=== PATIENT | female | born 1965 | race Caucasian/White ===

== ENCOUNTER 2019-01-25 15:45 | Emergency (ER) | payer BC ==
[2019-01-25] MEDS ORDERED: Sodium Chloride 0.9% 10 ML Syringe FLUSH PRN (16:53)
[2019-01-25] MEDS ORDERED: Sodium Chloride 0.9% 1,000 ML IV ONE (16:54)
[2019-01-25] MEDS ORDERED: Prochlorperazine 10 MG/2 ML SDV IVPUSH ONE (16:55)
[2019-01-25] MEDS ORDERED: diphenhydrAMINE 50 MG/ML SDV IVPUSH ONE (16:55)
--- NOTE | 2019-01-25 17:02 | EDM.PDOC ---
ED HPI GENERAL MEDICAL PROBLEM - General Chief Complaint: Headache Stated Complaint: HEADACHE MEMORY LOSS Time Seen by Provider: 01/25/19 16:57 Source of Information: Reports: Patient History Limitations: Reports: No Limitations - History of Present Illness INITIAL COMMENTS - FREE TEXT/NARRATIVE: Patient awoke with left sided headache today at 0500 associated with memory loss and exacerbated by light. Last known well was 2200 yesterday. She is unable to remember what she did all day yesterday, and was unable to remember a password at work today. She has felt dizzy and been sleeping all day today. She denies chest pain, SOB, focal weakness, numbness, and N/V. There have been no changes to her medications. Denies prior h/o chronic headaches. She had similar symptoms @3 years ago, but work up revealed no etiology. Onset: Today Location: Reports: Head Quality: Reports: Ache Severity: Moderate - Related Data Allergies Allergy/AdvReac Type Severity Reaction Status Date / Time seasonal Allergy Other Uncoded 01/25/19 18:19 Past Medical History Respiratory History: Reports: COPD, Pneumonia, Recurrent Other Respiratory History: Former cigarette smoker. Neurological History: Reports: Other (See Below) Other Neuro History: Episodes of headache and memory loss, around 2017 and 2019. Endocrine/Metabolic History: Reports: Other (See Below) Other Endocrine/Metabolic History: Takes thyroid medication. - Past Surgical History Female Surgical History: Reports: Section Social & Family History - Tobacco Use Smoking Status *Q: Former Smoker Tobacco Use Within Last Twelve Months: No - Alcohol Use Alcohol Use History: No - Recreational Drug Use Recreational Drug Use: No ED ROS GENERAL - Review of Systems Review Of Systems: ROS reveals no pertinent complaints other than HPI. - Physical Exam Exam: See Below Exam Limited By: No Limitations General Appearance: Alert, WD/WN, No Apparent Distress Eye Exam: Bilateral Eye: EOMI, PERRL Ears: Normal External Exam Nose: Normal Inspection Throat/Mouth: Normal Inspection, Normal Oropharynx, No Airway Compromise Head Exam: Atraumatic, Normocephalic Neck: Normal Inspection, Supple Respiratory/Chest: No Respiratory Distress, Lungs Clear, Normal Breath Sounds Cardiovascular: Regular Rate, Rhythm, No Murmur GI/Abdominal: No Distention Neuro Exam (Abbreviated): Alert, Oriented, CN II-XII Intact, No Motor/Sensory Deficits Back Exam: Full Range of Motion Extremities: Normal Range of Motion Psychiatric: Normal Affect Skin Exam: Warm, Dry Course - Vital Signs Last Recorded V/S: Last Vital Signs Temp 36.6 C 01/25/19 15:49 Pulse 94 01/25/19 15:49 Resp 16 01/25/19 15:49 BP 99/69 01/25/19 15:49 Pulse Ox 96 01/25/19 15:49 - Orders/Labs/Meds Orders: Active Orders 24 hr Category Date Time Status EKG Documentation Completion [RC] ASDIRECTED Care 01/25/19 16:56 Active Head wo Cont [CT] Stat Exams 01/25/19 16:56 Taken Sodium Chloride 0.9% [Saline Flush] Med 01/25/19 16:53 Active 10 ml FLUSH ASDIRECTED PRN Saline Lock Insert [OM.PC] Routine Oth 01/25/19 16:53 Ordered EKG 12 Lead [EK] Stat Ther 01/25/19 16:55 Ordered Medication Orders Sodium Chloride (Saline Flush) 10 ml FLUSH ASDIRECTED PRN PRN Reason: Keep Vein Open Labs: Laboratory Tests 01/25/19 01/25/19 01/25/19 Range/Units 17:05 17:05 17:05 WBC 6.1 (4.5-12.0) X10-3/uL RBC 4.74 (3.23-5.20) x10(6)uL Hgb 13.8 (11.5-15.5) g/dL Hct 40.8 (30.0-51.3) % MCV 85.9 (80-96) fL MCH 29.1 (27.7-33.6) pg MCHC 33.9 (32.2-35.4) g/dL RDW 11.4 L (11.5-15.5) % Plt Count 235 (125-369) X10(3)uL MPV 7.5 (7.4-10.4) fL Neut % (Auto) 64.5 (46-82) % Lymph % (Auto) 27.4 (13-37) % [place] % (Auto) 7.3 (4-12) % Eos % (Auto) 0 L (1.0-5.0) % Baso % (Auto) 0 (0-2) % Neut # (Auto) 4.0 (1.6-8.3) # Lymph # (Auto) 1.7 (0.6-5.0) # [place] # (Auto) 0.4 (0.0-1.3) # Eos # (Auto) 0.0 (0.0-0.8) # Baso # (Auto) 0.0 (0.0-0.2) # Sodium 137 (135-145) mmol/L Potassium 4.1 (3.5-5.3) mmol/L Chloride 100 (100-110) mmol/L Carbon Dioxide 29 (21-32) mmol/L BUN 6 L (7-18) mg/dL Creatinine 1.0 (0.55-1.02) mg/dL Est Cr Clr Drug Dosing TNP Estimated GFR (MDRD) 57 L (>60) BUN/Creatinine Ratio 6.0 L (9-20) Glucose 110 (80-116) mg/dL Calcium 9.0 (8.6-10.2) mg/dL Total Bilirubin 0.8 (0.1-1.3) mg/dL AST 16 (5-25) IU/L ALT 22 (12-36) U/L Alkaline Phosphatase 46 L (56-112) IU/L Troponin I < 0.017 L (<0.017-0.056) ng/mL Total Protein 6.9 (6.0-8.0) g/dL Albumin 3.6 (3.5-5.2) g/dL Globulin 3.3 g/dL Albumin/Globulin Ratio 1.1 TSH, Ultra Sensitive (0.36-3.74) IU/mL 01/25/19 Range/Units 17:05 WBC (4.5-12.0) X10-3/uL RBC (3.23-5.20) x10(6)uL Hgb (11.5-15.5) g/dL Hct (30.0-51.3) % MCV (80-96) fL MCH (27.7-33.6) pg MCHC (32.2-35.4) g/dL RDW (11.5-15.5) % Plt Count (125-369) X10(3)uL MPV (7.4-10.4) fL Neut % (Auto) (46-82) % Lymph % (Auto) (13-37) % [place]re[place] % (Auto) (4-12) % Eos % (Auto) (1.0-5.0) % Baso % (Auto) (0-2) % Neut # (Auto) (1.6-8.3) # Lymph # (Auto) (0.6-5.0) # M[place]re[place] # (Auto) (0.0-1.3) # Eos # (Auto) (0.0-0.8) # Baso # (Auto) (0.0-0.2) # Sodium (135-145) mmol/L Potassium (3.5-5.3) mmol/L Chloride (100-110) mmol/L Carbon Dioxide (21-32) mmol/L BUN (7-18) mg/dL Creatinine (0.55-1.02) mg/dL Est Cr Clr Drug Dosing Estimated GFR (MDRD) (>60) BUN/Creatinine Ratio (9-20) Glucose (80-116) mg/dL Calcium (8.6-10.2) mg/dL Total Bilirubin (0.1-1.3) mg/dL AST (5-25) IU/L ALT (12-36) U/L Alkaline Phosphatase (56-112) IU/L Troponin I (<0.017-0.056) ng/mL Total Protein (6.0-8.0) g/dL Albumin (3.5-5.2) g/dL Globulin g/dL Albumin/Globulin Ratio TSH, Ultra Sensitive 0.43 (0.36-3.74) IU/mL Meds: Medications Generic Name Dose Route Start Last Admin Trade Name Freq PRN Reason Stop Dose Admin Sodium Chloride 10 ml 01/25/19 16:53 Saline Flush FLUSH ASDIRECTED PRN Keep Vein Open Discontinued Medications Generic Name Dose Route Start Last Admin Trade Name Freq PRN Reason Stop Dose Admin Diphenhydramine HCl 25 mg 01/25/19 16:55 01/25/19 17:37 Benadryl IVPUSH 01/25/19 16:56 25 mg ONETIME ONE Administration Sodium Chloride 1,000 mls @ 999 mls/hr 01/25/19 16:54 01/25/19 17:37 Normal Saline IV 01/25/19 17:54 999 mls/hr .BOLUS ONE Administration Prochlorperazine Edisylate 10 mg 01/25/19 16:55 01/25/19 17:40 Compazine IVPUSH 01/25/19 16:56 10 mg ONETIME ONE Administration - Radiology Interpretation Free Text/Narrative:: Head CT w/o contrast: No acute intracranial abnormality. Chronic bilateral sinus disease. - Re-Assessments/Exams Free Text/Narrative Re-Assessment/Exam: 01/25/19 18:20 Headache resolved after Compazine 10mg IV, Benadryl 25mg IV and 1L NS. Patient ambulates w/o assistance. Migraine most likely etiology of headache with retrograde amnesia. Departure - Departure Time of Disposition: 18:21 Disposition: Home, Self-Care 01 Condition: Good Clinical Impression: Amnesia (retrograde) Headache Qualifiers: Headache type: unspecified Headache chronicity pattern: acute headache Intractability: not intractable Qualified Code(s): R51 - Headache - Discharge Information *PRESCRIPTION DRUG MONITORING PROGRAM REVIEWED*: No *COPY OF PRESCRIPTION DRUG MONITORING REPORT IN PATIENT JADIEL: Not Applicable Instructions: Migraine Headache, [id number] Referrals: Uyen Ibarra [employer] [Primary Care Provider] - 1 Day Forms: ED Department Discharge Additional Instructions: Rest, drink plenty of fluids. Follow up with your primary physician tomorrow. Will need a Neurology referral. Rest, drink plenty of fluids. Return to the ER if symptoms worsen, especially with worsening headache, worsening amnesia, change in mental status, focal weakness or visual disturbance. - My Orders Last 24 Hours: My Active Orders 01/25/19 16:53 Sodium Chloride 0.9% [Saline Flush] 10 ml FLUSH ASDIRECTED PRN Saline Lock Insert [OM.PC] Routine 01/25/19 16:55 EKG 12 Lead [EK] Stat 01/25/19 16:56 EKG Documentation Completion [RC] ASDIRECTED Head wo Cont [CT] Stat - Assessment/Plan Last 24 Hours: My Active Orders 01/25/19 16:53 Sodium Chloride 0.9% [Saline Flush] 10 ml FLUSH ASDIRECTED PRN Saline Lock Insert [OM.PC] Routine 01/25/19 16:55 EKG 12 Lead [EK] Stat 01/25/19 16:56 EKG Documentation Completion [RC] ASDIRECTED Head wo Cont [CT] Stat
== END 2019-01-25 18:45 | disposition home or self-care (01) ==
LOC: FB.ED 15:45
DX: R41.3 Other amnesia (principal); R51 Headache; J44.9 Chronic obstructive pulmonary disease, unspecified; Z87.891 Personal history of nicotine dependence; Z91.09 Other allergy status, other than to drugs and biological substances
CPT/HCPCS: 36415; 70450; 80053; 84443; 84484; 85025; 96361; 96374; 96375; 99284; J0780; J1200; J7030

== ENCOUNTER 2019-09-14 13:26 | Observation (INO) | payer BC ==
[2019-09-14] MEDS ORDERED: Ondansetron 4 MG/2 ML SDV IVPUSH ONE (13:33)
[2019-09-14] MEDS: Sodium Chloride 0.9% 10 ML Syringe FLUSH PRN (13:35)
[2019-09-14] MEDS ORDERED: cloNIDine 0.1 MG Tab PO ONE (13:38)
[2019-09-14] MEDS ORDERED: Levothyroxine 100 MCG Vial IVPUSH ONE (15:17)
[2019-09-14] MEDS ORDERED: Levothyroxine 150 MCG Tab PO STA (15:54)
--- NOTE | 2019-09-14 15:55 | EDM.PDOC ---
ED HPI GENERAL MEDICAL PROBLEM - General Chief Complaint: Syncope Stated Complaint: presyncope Time Seen by Provider: 09/14/19 13:30 Source of Information: Reports: Patient History Limitations: Reports: No Limitations - History of Present Illness INITIAL COMMENTS - FREE TEXT/NARRATIVE: Patient presented to the ED because of near syncopal episode. She said she has been having episodes of floating sensation and almost want to pass out. During this episode she is disoriented and confused, last for 1 minute or less and then she c/o of being very tired and drained of energy. This near syncopal episodes started 1 year ago but didn't mention it to her doctor. She denies any headache, N/V/D. No chest pain, dyspnea or recent cough or cold. frontal head Pain Score (Numeric/FACES): 2 - Related Data Allergies Allergy/AdvReac Type Severity Reaction Status Date / Time seasonal Allergy Other Uncoded 01/25/19 18:20 Home Meds: Home Meds Albuterol Sulfate [Proair Hfa] 2 puff INH Q4H PRN 01/25/19 [History] Budesonide/Formoterol [Symbicort 160-4.5 MCG] 2 puff INH BID 01/25/19 [History] Levothyroxine 150 mcg PO SUMOTUTHFR 01/25/19 [History] Levothyroxine Sodium 137 mcg PO WESA 01/25/19 [History] PARoxetine HCL [Paroxetine HCl] 20 mg PO DAILY 01/25/19 [History] Tiotropium [place] [Spiriva Respimat] 2 puff INH DAILY 01/25/19 [History] Past Medical History Cardiovascular History: Reports: Hypertension Respiratory History: Reports: COPD, Pneumonia, Recurrent Other Respiratory History: Former cigarette smoker. Neurological History: Reports: Other (See Below) Other Neuro History: Episodes of headache and memory loss, around 2017 and 2019. Endocrine/Metabolic History: Reports: Other (See Below) Other Endocrine/Metabolic History: Takes thyroid medication. - Past Surgical History Female Surgical History: Reports: Section Social & Family History - Tobacco Use Smoking Status *Q: Former Smoker Used Tobacco, but Quit: Yes Month/Year Tobacco Last Used: 2014 ED ROS GENERAL - Review of Systems Review Of Systems: See Below Constitutional: Reports: No Symptoms HEENT: Reports: No Symptoms Respiratory: Reports: No Symptoms Cardiovascular: Reports: No Symptoms Endocrine: Reports: Fatigue GI/Abdominal: Reports: No Symptoms : Reports: No Symptoms Musculoskeletal: Reports: No Symptoms Skin: Reports: No Symptoms Neurological: Reports: No Symptoms Psychiatric: Reports: No Symptoms Hematologic/Lymphatic: Reports: No Symptoms ED EXAM, GENERAL - Physical Exam Exam: See Below Exam Limited By: No Limitations General Appearance: Alert Ears: Normal External Exam Nose: Normal Inspection, Normal Mucosa Throat/Mouth: Normal Inspection, Normal Lips, Normal Teeth Head: Atraumatic, Normocephalic Neck: Normal Inspection, Supple, Non-Tender, Full Range of Motion Respiratory/Chest: No Respiratory Distress, Lungs Clear, Normal Breath Sounds Cardiovascular: Normal Peripheral Pulses, Regular Rate, Rhythm, No Edema, No JVD , No Murmur, No Rub GI/Abdominal: Normal Bowel Sounds, Soft, Non-Tender Back Exam: Normal Inspection, Full Range of Motion Extremities: Normal Inspection, Normal Range of Motion Neurological: Alert, Oriented, CN II-XII Intact, Normal Cognition Course - Vital Signs Text/Narrative:: Labs/EKG/CXR/Head CT result was discussed with patient, her Paxton and verbalized full understanding. TSH-33 Free T4-pending Levothyroxine 150 mcg po x1 Last Recorded V/S: Last Vital Signs Temp 37.1 C 09/14/19 13:26 Pulse 96 09/14/19 13:26 Resp 20 09/14/19 13:26 BP 172/89 H 09/14/19 13:44 Pulse Ox 97 09/14/19 13:26 - Orders/Labs/Meds Orders: Active Orders 24 hr Category Date Time Status EKG Documentation Completion [RC] ASDIRECTED Care 09/14/19 13:28 Active Chest 1V Frontal [CR] Stat Exams 09/14/19 14:09 Taken Head wo Cont [CT] Stat Exams 09/14/19 13:27 Taken THYROXINE (T4) FREE, DIRECT, S Stat Lab 09/14/19 14:20 Received LORazepam [Ativan] Med 09/14/19 16:17 Stat 1 mg IVPUSH NOW STA Sodium Chloride 0.9% [Saline Flush] Med 09/14/19 13:27 Active 10 ml FLUSH ASDIRECTED PRN Saline Lock Insert [OM.PC] Routine Oth 09/14/19 13:27 Ordered EKG 12 Lead [EK] Routine Ther 09/14/19 13:27 Ordered Medication Orders Sodium Chloride (Saline Flush) 10 ml FLUSH ASDIRECTED PRN PRN Reason: Keep Vein Open Last Admin: 09/14/19 13:35 Dose: 10 ml Labs: Laboratory Tests 09/14/19 09/14/19 09/14/19 Range/Units 14:20 14:20 14:20 WBC 6.1 (4.5-12.0) X10-3/uL RBC 4.41 (3.23-5.20) x10(6)uL Hgb 13.7 (11.5-15.5) g/dL Hct 41.5 (30.0-51.3) % MCV 94.2 (80-96) fL MCH 31.0 (27.7-33.6) pg MCHC 32.9 (32.2-35.4) g/dL RDW 13.2 (11.5-15.5) % Plt Count 220 (125-369) X10(3)uL MPV 7.1 L (7.4-10.4) fL Neut % (Auto) 83.3 H (46-82) % Lymph % (Auto) 12.2 L (13-37) % [place] % (Auto) 3.8 L (4-12) % Eos % (Auto) 0 L (1.0-5.0) % Baso % (Auto) 1 (0-2) % Neut # (Auto) 5.2 (1.6-8.3) # Lymph # (Auto) 0.7 (0.6-5.0) # [place] # (Auto) 0.2 (0.0-1.3) # Eos # (Auto) 0.0 (0.0-0.8) # Baso # (Auto) 0.0 (0.0-0.2) # PT 18.2 H (9.0-11.1) sec INR 1.75 H (1.00-1.24) APTT 25.9 (24.4-33.2) SECONDS Sodium 134 L (135-145) mmol/L Potassium 3.9 (3.5-5.3) mmol/L Chloride 98 L (100-110) mmol/L Carbon Dioxide 28 (21-32) mmol/L BUN 10 (7-18) mg/dL Creatinine 1.0 (0.55-1.02) mg/dL Est Cr Clr Drug Dosing TNP Estimated GFR (MDRD) 57 L (>60) BUN/Creatinine Ratio 10.0 (9-20) Glucose 129 H (80-116) mg/dL Calcium 8.8 (8.6-10.2) mg/dL Total Bilirubin 1.2 (0.1-1.3) mg/dL AST 32 H D (5-25) IU/L ALT 32 D (12-36) U/L Alkaline Phosphatase 64 (56-112) IU/L Troponin I (4.0-60.3) pg/mL Total Protein 8.3 H (6.0-8.0) g/dL Albumin 4.5 (3.5-5.2) g/dL Globulin 3.8 g/dL Albumin/Globulin Ratio 1.2 TSH, Ultra Sensitive (0.36-3.74) IU/mL 09/14/19 09/14/19 Range/Units 14:20 14:20 WBC (4.5-12.0) X10-3/uL RBC (3.23-5.20) x10(6)uL Hgb (11.5-15.5) g/dL Hct (30.0-51.3) % MCV (80-96) fL MCH (27.7-33.6) pg MCHC (32.2-35.4) g/dL RDW (11.5-15.5) % Plt Count (125-369) X10(3)uL MPV (7.4-10.4) fL Neut % (Auto) (46-82) % Lymph % (Auto) (13-37) % [place] % (Auto) (4-12) % Eos % (Auto) (1.0-5.0) % Baso % (Auto) (0-2) % Neut # (Auto) (1.6-8.3) # Lymph # (Auto) (0.6-5.0) # [place] # (Auto) (0.0-1.3) # Eos # (Auto) (0.0-0.8) # Baso # (Auto) (0.0-0.2) # PT (9.0-11.1) sec INR (1.00-1.24) APTT (24.4-33.2) SECONDS Sodium (135-145) mmol/L Potassium (3.5-5.3) mmol/L Chloride (100-110) mmol/L Carbon Dioxide (21-32) mmol/L BUN (7-18) mg/dL Creatinine (0.55-1.02) mg/dL Est Cr Clr Drug Dosing Estimated GFR (MDRD) (>60) BUN/Creatinine Ratio (9-20) Glucose (80-116) mg/dL Calcium (8.6-10.2) mg/dL Total Bilirubin (0.1-1.3) mg/dL AST (5-25) IU/L ALT (12-36) U/L Alkaline Phosphatase (56-112) IU/L Troponin I 6.0 (4.0-60.3) pg/mL Total Protein (6.0-8.0) g/dL Albumin (3.5-5.2) g/dL Globulin g/dL Albumin/Globulin Ratio TSH, Ultra Sensitive 38.62 H* (0.36-3.74) IU/mL Meds: Medications Generic Name Dose Route Start Last Admin Trade Name Freq PRN Reason Stop Dose Admin Sodium Chloride 10 ml 09/14/19 13:27 09/14/19 13:35 Saline Flush FLUSH 10 ml ASDIRECTED PRN Administration Keep Vein Open Discontinued Medications Generic Name Dose Route Start Last Admin Trade Name Freq PRN Reason Stop Dose Admin Clonidine HCl 0.1 mg 09/14/19 13:38 09/14/19 13:44 Catapres PO 09/14/19 13:39 0.1 mg ONETIME ONE Administration Levothyroxine Sodium 150 mcg 09/14/19 15:17 09/14/19 15:53 Synthroid IVPUSH 09/14/19 15:18 Not Given ONETIME ONE Levothyroxine Sodium 150 mcg 09/14/19 15:54 09/14/19 16:05 Levothyroxine PO 09/14/19 15:55 150 mcg NOW STA Administration Ondansetron HCl 4 mg 09/14/19 13:33 09/14/19 13:44 Zofran IVPUSH 09/14/19 13:34 4 mg ONETIME ONE Administration Departure - Departure Time of Disposition: 16:20 Disposition: Refer to Observation Condition: Good Clinical Impression: Near syncope, Hypothyroidism - Discharge Information Referrals: PCP,None [Primary Care Provider] - Forms: ED Department Discharge Sepsis Event Note - Evaluation Sepsis Screening Result: No Definite Risk - Focused Exam Vital Signs: Vital Signs Temp Pulse Resp BP BP Pulse Ox 09/14/19 13:44 172/89 H 09/14/19 13:26 37.1 C 96 20 160/84 H 97 Date Exam was Performed: 09/14/19 Time Exam was Performed: 16:18 - My Orders Last 24 Hours: My Active Orders 09/14/19 13:27 Head wo Cont [CT] Stat Sodium Chloride 0.9% [Saline Flush] 10 ml FLUSH ASDIRECTED PRN Saline Lock Insert [OM.PC] Routine EKG 12 Lead [EK] Routine 09/14/19 13:28 EKG Documentation Completion [RC] ASDIRECTED 09/14/19 14:09 Chest 1V Frontal [CR] Stat 09/14/19 14:20 THYROXINE (T4) FREE, DIRECT, S Stat 09/14/19 16:17 LORazepam [Ativan] 1 mg IVPUSH NOW STA - Assessment/Plan Last 24 Hours: My Active Orders 09/14/19 13:27 Head wo Cont [CT] Stat Sodium Chloride 0.9% [Saline Flush] 10 ml FLUSH ASDIRECTED PRN Saline Lock Insert [OM.PC] Routine EKG 12 Lead [EK] Routine 09/14/19 13:28 EKG Documentation Completion [RC] ASDIRECTED 09/14/19 14:09 Chest 1V Frontal [CR] Stat 09/14/19 14:20 THYROXINE (T4) FREE, DIRECT, S Stat 09/14/19 16:17 LORazepam [Ativan] 1 mg IVPUSH NOW STA
[2019-09-14] MEDS ORDERED: LORazepam 2 MG/ML SDV IVPUSH STA (16:17)
[2019-09-14] MEDS ORDERED: Ondansetron 4 MG/2 ML SDV IVPUSH PRN (16:25)
[2019-09-14] MEDS ORDERED: LORazepam 2 MG/ML SDV IVPUSH PRN (16:40)
--- NOTE | 2019-09-14 17:18 | CR ---
INDICATION: Altered level of consciousness. CHEST, ONE VIEW: An AP upright portable view of the chest 09/14/19 was compared with 03/03/09. Poor inspiration is noted emphasizing the elevated left hemidiaphragm. Linear densities at the left hemidiaphragm suggest subsegmental atelectasis. Overlying devices are noted including EKG leads. Heart size difficult to evaluate with the elevated diaphragm but appears to be within normal limits. No definite mediastinal abnormality was seen. A definite active infiltrate or effusion was not identified. IMPRESSION: Probable linear atelectatic changes at the left lung base. There is no other suggestion of an acute process. MTDD
--- NOTE | 2019-09-14 17:24 | CT ---
INDICATION: Altered level of consciousness times one hour. CT HEAD WITHOUT CONTRAST: Spiral 2.5 mm axial sections were obtained through the brain without contrast with sagittal and coronal reconstructions 09/14/19 and compared to 01/25/19. Total exam DLP was 1348.07 mGy-cm. There is again noted thickening of the lining of the base of the right maxillary antrum with clearing of thickening of the lining seen on the previous study at the left maxillary antrum. The sphenoidal air cells were unremarkable. There is some thickening of the lining of the frontal air cells at the base of the frontal air cells. There is thickening of the linings of a few of the more superiorly located ethmoidal air cells. Findings may represent a process such as allergic sinusitis but should be correlated clinically. No definite cranial abnormality was seen. No shift of midline structures, ventricular abnormalities or abnormal areas of density were identified - no bleeding site or hematoma was seen. The orbits appear to be intact. IMPRESSION: 1. No acute intracranial abnormalities. 2. Mild chronic findings in paranasal sinuses. Report was called to Dr. Doe at 1408 hours. [facility]
[2019-09-14] MEDS ORDERED: levETIRAcetam 1,500 MG in Sodium Chloride 0.9% 100 ML IV STA (18:00)
[2019-09-14] MEDS ORDERED: levETIRAcetam 1,000 MG in Sodium Chloride 0.9% 100 ML IV SCH (18:00)
[2019-09-15] MEDS: Sodium Chloride 0.9% 10 ML Syringe FLUSH PRN (05:49)
[2019-09-15] MEDS ORDERED: Levothyroxine 150 MCG Tab PO SCH (06:00)
[2019-09-15] MEDS ORDERED: levETIRAcetam 1,000 MG in Sodium Chloride 0.9% 100 ML IV SCH (06:00)
--- NOTE | 2019-09-15 08:58 | PCM.HP.2 ---
H&P History of Present Illness - General Date of Service: 09/15/19 Admit Problem/Dx: Admission Diagnosis/Problem Admission Diagnosis/Problem Near syncope Source of Information: Patient History Limitations: Reports: No Limitations - History of Present Illness Initial Comments - Free Text/Narative: Maureen is a 54-year-old female admitted because of spells. She had episodes of confusion,zoning out and extreme weakness. These episodes appeared to be continuous yesterday and she is not able to remember much about what happened. She describes feeling of 'floating'. A Review of medical records at [place], showed she has had similar episodes since 2014. She has been seen by neurology, and workup including Holter monitoring was negative at that time. There was no sphincter disturbance during these episodes and no visible seizure by witnesses who then called ambulance. She has a history of anxiety, obstructive sleep apnea and migraines. These have been stable. frontal head Pain Score (Numeric/FACES): 2 - Related Data Allergies/Adverse Reactions: Allergies Allergy/AdvReac Type Severity Reaction Status Date / Time seasonal Allergy Other Uncoded 01/25/19 18:20 Home Medications: Home Meds Albuterol Sulfate [Proair Hfa] 2 puff INH Q4H PRN 01/25/19 [History] Budesonide/Formoterol [Symbicort 160-4.5 MCG] 2 puff INH BID 01/25/19 [History] Levothyroxine 150 mcg PO SUMOTUTHFR 01/25/19 [History] Levothyroxine Sodium 137 mcg PO WESA 01/25/19 [History] PARoxetine HCL [Paroxetine HCl] 20 mg PO DAILY 01/25/19 [History] Tiotropium [place] [Spiriva Respimat] 2 puff INH DAILY 01/25/19 [History] Past Medical History HEENT History: Reports: Impaired Vision Cardiovascular History: Reports: Hypertension Respiratory History: Reports: Asthma, COPD, Pneumonia, Recurrent Other Respiratory History: Former cigarette smoker. 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 Psychiatric History: Reports: Anxiety, Depression Endocrine/Metabolic History: Reports: Hypothyroidism, Obesity/BMI 30+, Other ( See Below) Other Endocrine/Metabolic History: Takes thyroid medication. Hematologic History: Reports: None Immunologic History: Reports: None Oncologic (Cancer) History: Reports: None Dermatologic History: Reports: None - Infectious Disease History Infectious Disease History: Reports: None - Past Surgical History Female Surgical History: Reports: Section Social & Family History - Family History Family Medical History: Noncontributory - Tobacco Use Smoking Status *Q: Former Smoker Used Tobacco, but Quit: Yes Month/Year Tobacco Last Used: 10 years ago - Caffeine Use Caffeine Use: Reports: Soda - Alcohol Use Days Per Week of Alcohol Use: 7 Number of Drinks Per Day: 1 Total Drinks Per Week: 7 - Recreational Drug Use Recreational Drug Use: No H&P Review of Systems - Review of Systems: Review Of Systems: Comprehensive ROS is negative, except as noted in HPI. Exam - Exam Exam: See Below - Vital Signs Vital Signs: Last Vital Signs Temp 98.7 F 09/15/19 02:00 Pulse 68 09/15/19 06:00 Resp 16 09/15/19 06:00 BP 115/56 L 09/15/19 06:00 Pulse Ox 97 09/15/19 06:00 Weight: 87.997 kg - Exam General: Alert, Oriented, 4 HEENT: PERRLA, Hearing Intact, Mucosa Moist & [place], Nares Patent, Normal Nasal Septum, Posterior Pharynx Clear, Conjunctiva Clear, EOMI, EACs Clear, TMs Clear Neck: Supple, Trachea Midline, 2 Lungs: Clear to Auscultation, Normal Respiratory Effort Cardiovascular: Regular Rate, Regular Rhythm GI/Abdominal Exam: Normal Bowel Sounds, Soft, Non-Tender, No Organomegaly, No Distention, No Abnormal Bruit, No Mass, Pelvis Stable (Female) Exam: Deferred Rectal (Female) Exam: Deferred Back Exam: Normal Inspection, Full Range of Motion, NT Extremities: Normal Inspection, Normal Range of Motion, Non-Tender, No Pedal Edema, Normal Capillary Refill Skin: Warm, Dry, Intact Neurological: Cranial Nerves Intact, Reflexes Equal Bilateral Neuro Extensive - Mental Status: Alert, Oriented x3, Normal Mood/Affect, Normal Cognition Neuro Extensive - Motor, Sensory, Reflexes: CN II-XII Intact, Normal Gait, Normal Reflexes Psychiatric: Alert, Normal Affect, Normal Mood - Patient Data Lab Results Last 24 hrs: Laboratory Results - last 24 hr 09/14/19 09/14/19 09/14/19 Range/Units 14:20 14:20 14:20 WBC 6.1 (4.5-12.0) X10-3/uL RBC 4.41 (3.23-5.20) x10(6)uL Hgb 13.7 (11.5-15.5) g/dL Hct 41.5 (30.0-51.3) % MCV 94.2 (80-96) fL MCH 31.0 (27.7-33.6) pg MCHC 32.9 (32.2-35.4) g/dL RDW 13.2 (11.5-15.5) % Plt Count 220 (125-369) X10(3)uL MPV 7.1 L (7.4-10.4) fL Neut % (Auto) 83.3 H (46-82) % Lymph % (Auto) 12.2 L (13-37) % [place] % (Auto) 3.8 L (4-12) % Eos % (Auto) 0 L (1.0-5.0) % Baso % (Auto) 1 (0-2) % Neut # (Auto) 5.2 (1.6-8.3) # Lymph # (Auto) 0.7 (0.6-5.0) # [place] # (Auto) 0.2 (0.0-1.3) # Eos # (Auto) 0.0 (0.0-0.8) # Baso # (Auto) 0.0 (0.0-0.2) # PT 18.2 H (9.0-11.1) sec INR 1.75 H (1.00-1.24) APTT 25.9 (24.4-33.2) SECONDS Sodium 134 L (135-145) mmol/L Potassium 3.9 (3.5-5.3) mmol/L Chloride 98 L (100-110) mmol/L Carbon Dioxide 28 (21-32) mmol/L BUN 10 (7-18) mg/dL Creatinine 1.0 (0.55-1.02) mg/dL Est Cr Clr Drug Dosing TNP Estimated GFR (MDRD) 57 L (>60) BUN/Creatinine Ratio 10.0 (9-20) Glucose 129 H (80-116) mg/dL Calcium 8.8 (8.6-10.2) mg/dL Total Bilirubin 1.2 (0.1-1.3) mg/dL AST 32 H D (5-25) IU/L ALT 32 D (12-36) U/L Alkaline Phosphatase 64 (56-112) IU/L Troponin I (4.0-60.3) pg/mL Total Protein 8.3 H (6.0-8.0) g/dL Albumin 4.5 (3.5-5.2) g/dL Globulin 3.8 g/dL Albumin/Globulin Ratio 1.2 TSH, Ultra Sensitive (0.36-3.74) IU/mL 09/14/19 09/14/19 09/15/19 Range/Units 14:20 14:20 05:50 WBC 5.0 (4.5-12.0) X10-3/uL RBC 4.00 (3.23-5.20) x10(6)uL Hgb 12.7 (11.5-15.5) g/dL Hct 37.9 (30.0-51.3) % MCV 94.9 (80-96) fL MCH 31.9 (27.7-33.6) pg MCHC 33.6 (32.2-35.4) g/dL RDW 12.4 (11.5-15.5) % Plt Count 187 (125-369) X10(3)uL MPV (7.4-10.4) fL Neut % (Auto) (46-82) % Lymph % (Auto) (13-37) % [place] % (Auto) (4-12) % Eos % (Auto) (1.0-5.0) % Baso % (Auto) (0-2) % Neut # (Auto) (1.6-8.3) # Lymph # (Auto) (0.6-5.0) # [place] # (Auto) (0.0-1.3) # Eos # (Auto) (0.0-0.8) # Baso # (Auto) (0.0-0.2) # PT (9.0-11.1) sec INR (1.00-1.24) APTT (24.4-33.2) SECONDS Sodium (135-145) mmol/L Potassium (3.5-5.3) mmol/L Chloride (100-110) mmol/L Carbon Dioxide (21-32) mmol/L BUN (7-18) mg/dL Creatinine (0.55-1.02) mg/dL Est Cr Clr Drug Dosing Estimated GFR (MDRD) (>60) BUN/Creatinine Ratio (9-20) Glucose (80-116) mg/dL Calcium (8.6-10.2) mg/dL Total Bilirubin (0.1-1.3) mg/dL AST (5-25) IU/L ALT (12-36) U/L Alkaline Phosphatase (56-112) IU/L Troponin I 6.0 (4.0-60.3) pg/mL Total Protein (6.0-8.0) g/dL Albumin (3.5-5.2) g/dL Globulin g/dL Albumin/Globulin Ratio TSH, Ultra Sensitive 38.62 H* (0.36-3.74) IU/mL 09/15/19 Range/Units 05:50 WBC (4.5-12.0) X10-3/uL RBC (3.23-5.20) x10(6)uL Hgb (11.5-15.5) g/dL Hct (30.0-51.3) % MCV (80-96) fL MCH (27.7-33.6) pg MCHC (32.2-35.4) g/dL RDW (11.5-15.5) % Plt Count (125-369) X10(3)uL MPV (7.4-10.4) fL Neut % (Auto) (46-82) % Lymph % (Auto) (13-37) % [place] % (Auto) (4-12) % Eos % (Auto) (1.0-5.0) % Baso % (Auto) (0-2) % Neut # (Auto) (1.6-8.3) # Lymph # (Auto) (0.6-5.0) # [place] # (Auto) (0.0-1.3) # Eos # (Auto) (0.0-0.8) # Baso # (Auto) (0.0-0.2) # PT (9.0-11.1) sec INR (1.00-1.24) APTT (24.4-33.2) SECONDS Sodium 136 (135-145) mmol/L Potassium 4.1 (3.5-5.3) mmol/L Chloride 99 L (100-110) mmol/L Carbon Dioxide 30 (21-32) mmol/L BUN 9 (7-18) mg/dL Creatinine 1.0 (0.55-1.02) mg/dL Est Cr Clr Drug Dosing 65.65 Estimated GFR (MDRD) 57 L (>60) BUN/Creatinine Ratio 9.0 (9-20) Glucose 114 (80-116) mg/dL Calcium 8.4 L (8.6-10.2) mg/dL Total Bilirubin (0.1-1.3) mg/dL AST (5-25) IU/L ALT (12-36) U/L Alkaline Phosphatase (56-112) IU/L Troponin I (4.0-60.3) pg/mL Total Protein (6.0-8.0) g/dL Albumin (3.5-5.2) g/dL Globulin g/dL Albumin/Globulin Ratio TSH, Ultra Sensitive (0.36-3.74) IU/mL Result Diagrams: 09/15/19 05:50 09/15/19 05:50 Sepsis Event Note - Evaluation Sepsis Screening Result: No Definite Risk - Focused Exam Vital Signs: Vital Signs Temp Pulse Resp BP Pulse Ox 09/15/19 06:00 68 16 115/56 L 97 09/15/19 02:00 98.7 F 79 16 142/71 H 97 09/14/19 22:00 98.8 F 90 16 130/66 98 Date Exam was Performed: 09/15/19 Time Exam was Performed: 08:53 - Problem List (1) Spells of decreased attentiveness SNOMED Code(s): 35939680 ICD Code: R68.89 - OTHER GENERAL SYMPTOMS AND SIGNS Status: Acute Current Visit: Yes (2) [place]ON (obstructive sleep apnea) SNOMED Code(s): 23141098 ICD Code: G47.33 - OBSTRUCTIVE SLEEP APNEA (ADULT) (PEDIATRIC) Status: Acute Current Visit: Yes (3) Anxiety SNOMED Code(s): 94119846 ICD Code: F41.9 - ANXIETY DISORDER, UNSPECIFIED Status: Acute Current Visit: Yes (4) Hypothyroidism SNOMED Code(s): 49012755 ICD Code: E03.9 - HYPOTHYROIDISM, UNSPECIFIED Status: Acute Current Visit : Yes (5) Amnesia (retrograde) SNOMED Code(s): 89337476 ICD Code: R41.2 - RETROGRADE AMNESIA Status: Acute Current Visit: No Problem List Initiated/Reviewed/Updated: Yes Orders Last 24hrs: Active Orders 24 hr Category Date Time Status Patient Status [ADT] Routine ADT 09/14/19 16:20 Active CIWAA Assessment [RC] .PRN Care 09/14/19 20:20 Active EKG Documentation Completion [RC] ASDIRECTED Care 09/14/19 13:28 Active EKG Documentation Completion [RC] ASDIRECTED Care 09/14/19 16:54 Active Oxygen Therapy [RC] PRN Care 09/14/19 16:20 Active Pulse Oximetry [RC] CONTINUOUS Care 09/14/19 16:22 Active Telemetry Monitoring [Cardiac Monitoring] [RC] .As Care 09/14/19 16:41 Active Directed Up With Assistance [RC] ASDIRECTED Care 09/14/19 16:20 Active VTE/DVT Education [RC] Per Unit Routine Care 09/14/19 16:20 Active Vital Signs [RC] Q4H Care 09/14/19 16:20 Active Regular Diet [DIET] Diet 09/14/19 Dinner Ordered CBC W/O DIFF,HEMOGRAM [HEME] AM Lab 09/16/19 05:11 Ordered THYROXINE (T4) FREE, DIRECT, S Stat Lab 09/14/19 14:20 Received LORazepam [Ativan] Med 09/14/19 16:40 Active 1 mg IVPUSH Q8H PRN Levothyroxine Med 09/15/19 06:00 Active 150 mcg PO QAM Ondansetron [Zofran] Med 09/14/19 16:25 Active 4 mg IVPUSH Q4H PRN Sodium Chloride 0.9% [Saline Flush] Med 09/14/19 13:27 Active 10 ml FLUSH ASDIRECTED PRN levETIRAcetam [Keppra] 1,000 mg Med 09/15/19 06:00 Active Sodium Chloride 0.9% [Normal Saline] 100 ml IV Q12H Saline Lock Insert [OM.PC] Routine Oth 09/14/19 13:27 Ordered Resuscitation Status Routine Resus Stat 09/14/19 16:20 Ordered EKG 12 Lead [EK] Routine Ther 09/14/19 13:27 Ordered EKG 12 Lead [EK] Routine Ther 09/14/19 16:54 Ordered Medication Orders Levetiracetam 1,000 mg/ Sodium (Chloride) 110 mls @ 400 mls/hr IV Q12H JAVAD Last Admin: 09/15/19 05:47 Dose: 400 mls/hr Levothyroxine Sodium (Levothyroxine) 150 mcg PO QAM JAVAD Last Admin: 09/15/19 05:45 Dose: 150 mcg Lorazepam (Ativan) 1 mg IVPUSH Q8H PRN PRN Reason: Anxiety Ondansetron HCl (Zofran) 4 mg IVPUSH Q4H PRN PRN Reason: Nausea/Vomiting Sodium Chloride (Saline Flush) 10 ml FLUSH ASDIRECTED PRN PRN Reason: Keep Vein Open Last Admin: 09/15/19 05:49 Dose: 10 ml Admin: 09/14/19 13:35 Dose: 10 ml Assessment/Plan Comment:: The ER staff contacted the neurologist yesterday, who recommended she feels better this morning I will discharge her for follow-up next week in the office.
--- NOTE | 2019-09-17 08:32 | DISCH ---
DISCHARGE DATE: 09/15/2019 REASON FOR VISIT: 1. Near syncope. 2. Spells. 3. Obstructive sleep apnea. 4. Hypothyroidism. 5. Anxiety. DISCHARGE DIAGNOSES: 1. Near syncope. 2. Spells. 3. Obstructive sleep apnea. 4. Hypothyroidism. 5. Anxiety. BRIEF HISTORY AND HOSPITAL COURSE: This is a 54-year-old female, who was admitted because of a spell that was continuous, described in the HPI from this morning. She had no seizure since admission. She feels much better this morning, and I will discharge her home. TSH was 38. The rest of the laboratory studies were normal. I will discharge her on levothyroxine at an increased dose of 200 mcg daily and start Keppra 500 mg b.i.d. I recommend no driving until she has seen her PCP or Neurology next week. I spent more than 35 minutes in the discharge of the patient. /[id number] SUSANNAH/EVER
== END 2019-09-15 10:15 | disposition home or self-care (01) ==
LOC: FB.ED 13:26 → FB.MS 16:20
PROVIDERS: ADMIT Emergency Medicine; ATTEND Family Medicine
DX: R55 Syncope and collapse (principal); R68.89 Other general symptoms and signs; G47.33 Obstructive sleep apnea (adult) (pediatric); R41.3 Other amnesia; E03.9 Hypothyroidism, unspecified; F41.9 Anxiety disorder, unspecified; E66.9 Obesity, unspecified; I10 Essential (primary) hypertension; J44.9 Chronic obstructive pulmonary disease, unspecified; Z87.891 Personal history of nicotine dependence; Z79.51 Long term (current) use of inhaled steroids; Z79.899 Other long term (current) drug therapy; Z79.890 Hormone replacement therapy; Z68.28 Body mass index [BMI] 28.0-28.9, adult
CPT/HCPCS: 36415; 70450; 71045; 80048; 80053; 84439; 84443; 84484; 85025; 85027; 85610; 85730; 93005; 96374; 96375; 99285-25; A9270-GY; J1953; J2060; J2405; J7050

== ENCOUNTER 2021-03-10 03:23 | Observation (INO) | payer BC, OTHER ==
[2021-03-10] MEDS ORDERED: levETIRAcetam 1,500 MG in Sodium Chloride 0.9% 100 ML IV STA (03:40)
[2021-03-10] MEDS ORDERED: LORazepam 2 MG/ML SDV IVPUSH PRN (04:28)
--- NOTE | 2021-03-10 04:38 | EDM.PDOC ---
ED HPI GENERAL MEDICAL PROBLEM - General Stated Complaint: SEIZURES Time Seen by Provider: 03/10/21 03:30 Source of Information: Reports: EMS, Family History Limitations: Reports: Altered Mental Status - History of Present Illness INITIAL COMMENTS - FREE TEXT/NARRATIVE: Patient is a 56 YO WF who presented to the ED because of 3 brief seizure episodes at home and 1 while in the ED each of which lasted a minute. It consist of generalized body jerking followed by post ictal confusion and headache. She is taking lamictal 100 mg twice daily for her seizure. According to her , she is compliant with her medications but she drinks alcohol on a daily basis. She was seen by her Neurologist at [facility] several months ago and apparently no changes in her medication was made. There is no recent fever, chills, cough/cold, and she is Covid vaccinated. Headache Pain Score (Numeric/FACES): 5 DENIES ANY PAIN WHEN ASKED AT PRESENT TIME. Pain Score (Numeric/FACES): 0 - Related Data Allergies Allergy/AdvReac Type Severity Reaction Status Date / Time seasonal Allergy Other Uncoded 01/25/19 18:20 Home Meds: Home Meds Albuterol Sulfate [Proair Hfa] 2 puff INH Q4H PRN 01/25/19 [History] PARoxetine HCL [Paroxetine HCl] 20 mg PO DAILY 01/25/19 [History] Tiotropium [place] [Spiriva Respimat] 2 puff INH DAILY 01/25/19 [History] Apixaban [Eliquis] 5 mg PO BID 03/10/21 [History] Budesonide/Glycopyr/Formoterol [Breztri Aerosphere Inhaler] 2 puff INH BID 03/10/21 [History] Levothyroxine 150 mcg PO DAILY 03/10/21 [History] atorvaSTATin [Lipitor] 40 mg PO BEDTIME 03/10/21 [History] dilTIAZem HCL [Dilt-Xr] 240 mg PO DAILY 03/10/21 [History] lamoTRIgine [Lamotrigine] 100 mg PO BID 03/10/21 [History] Naltrexone HCl [Revia] 50 mg PO DAILY #30 tablet 03/11/21 [Rx] Past Medical History HEENT History: Reports: Impaired Vision Cardiovascular History: Reports: Hypertension Respiratory History: Reports: Asthma, COPD, Pneumonia, Recurrent Other Respiratory History: Former cigarette smoker. 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 Psychiatric History: Reports: Anxiety, Depression Endocrine/Metabolic History: Reports: Hypothyroidism, Obesity/BMI 30+, Other (See Below) Other Endocrine/Metabolic History: Takes thyroid medication. Hematologic History: Reports: None Immunologic History: Reports: None Oncologic (Cancer) History: Reports: None Dermatologic History: Reports: None - Infectious Disease History Infectious Disease History: Reports: None - Past Surgical History Female Surgical History: Reports: Section Social & Family History - Family History Family Medical History: No Pertinent Family History - Caffeine Use Caffeine Use: Reports: Soda ED ROS GENERAL - Review of Systems Review Of Systems: See Below Constitutional: Reports: No Symptoms HEENT: Reports: No Symptoms Respiratory: Reports: No Symptoms Cardiovascular: Reports: No Symptoms Endocrine: Reports: No Symptoms GI/Abdominal: Reports: No Symptoms : Reports: No Symptoms Musculoskeletal: Reports: No Symptoms Skin: Reports: No Symptoms Neurological: Reports: Confusion, Headache, Seizure Psychiatric: Reports: No Symptoms Hematologic/Lymphatic: Reports: No Symptoms - Physical Exam Exam: See Below Exam Limited By: No Limitations General Appearance: Alert, No Apparent Distress Ears: Normal External Exam, Normal [place] Nose: Normal Inspection, Normal Mucosa, No Blood Throat/Mouth: Normal Inspection Head Exam: Atraumatic Neck: Normal Inspection, Supple, Non-Tender Respiratory/Chest: No Respiratory Distress, Lungs Clear, Normal Breath Sounds, No Accessory Muscle Use, Chest Non-Tender Cardiovascular: Normal Peripheral Pulses, Regular Rate, Rhythm, No Edema, No Gallop, No JVD, No Murmur, No Rub GI/Abdominal: Normal Bowel Sounds, Soft, Non-Tender, No Organomegaly, No Distention, No Abnormal Bruit, No Mass Neuro Exam (Abbreviated): Confused, Disoriented, Slow to Respond Back Exam: Normal Inspection, Full Range of Motion Extremities: Normal Inspection, Normal Range of Motion, Non-Tender, No Pedal Edema, Normal Capillary Refill Course - Vital Signs Text/Narrative:: Lab result was reviewed and discussed with patient and her NS @ 125 ml/hr Keppra 1.5 gm IV x1 Last Recorded V/S: Last Vital Signs Temp 36.9 C 03/11/21 09:30 Pulse 87 03/11/21 09:30 Resp 18 03/11/21 09:30 BP 133/75 03/11/21 09:30 Pulse Ox 97 03/11/21 09:30 - Orders/Labs/Meds Labs: Laboratory Tests 03/10/21 03/10/21 03/10/21 Range/Units 03:55 03:55 03:55 WBC 10.4 H (3.0-10.3) x10-3/uL RBC 3.85 (3.60-5.20) x10(6)uL Hgb 12.5 (11.4-15.5) g/dL Hct 37.6 (34.2-48.2) % MCV 97.6 (76.7-100.5) fL MCH 32.5 (23.9-33.9) pg MCHC 33.3 (31.9-34.8) g/dL RDW 13.2 (12.3-16.5) % Plt Count 296 (151-488) x10(3)uL MPV 7.1 (7.1-12.4) fL Neut % (Auto) 84.9 H (30.8-76.2) % Lymph % (Auto) 10.3 L (18.4-52.1) % [place] % (Auto) 3.8 L (4.4-15.7) % Eos % (Auto) 0.1 L (0.6-8.1) % Baso % (Auto) 0.9 (0.2-1.5) % Neut # (Auto) 8.8 H (1.5-6.3) x10-3/uL Lymph # (Auto) 1.1 (1.0-4.4) x10-3/uL [place] # (Auto) 0.4 (0.3-1.0) x10-3/uL Eos # (Auto) 0.0 (0.0-0.8) x10-3/uL Baso # (Auto) 0.1 (0.0-0.1) x10-3/uL Sodium 130 L (135-145) mmol/L Potassium 3.5 (3.5-5.3) mmol/L Chloride 94 L D (100-110) mmol/L Carbon Dioxide 19 L (21-32) mmol/L BUN 12 (7-18) mg/dL Creatinine 1.3 H (0.55-1.02) mg/dL Est Cr Clr Drug Dosing TNP Estimated GFR (MDRD) 42 L (>60) BUN/Creatinine Ratio 9.2 (9-20) Glucose 177 H (80-116) mg/dL Calcium 8.2 L (8.6-10.2) mg/dL Total Bilirubin 1.2 (0.1-1.3) mg/dL AST 100 H D (5-25) IU/L ALT 68 H D (12-36) U/L Alkaline Phosphatase 119 H (56-112) IU/L Total Protein 6.6 (6.0-8.0) g/dL Albumin 3.2 L (3.5-5.2) g/dL Globulin 3.4 g/dL Albumin/Globulin Ratio 0.9 TSH, Ultra Sensitive (0.36-3.74) IU/mL Ethyl Alcohol < 0.03 (<0.03) % 03/10/21 Range/Units 03:55 WBC (3.0-10.3) x10-3/uL RBC (3.60-5.20) x10(6)uL Hgb (11.4-15.5) g/dL Hct (34.2-48.2) % MCV (76.7-100.5) fL MCH (23.9-33.9) pg MCHC (31.9-34.8) g/dL RDW (12.3-16.5) % Plt Count (151-488) x10(3)uL MPV (7.1-12.4) fL Neut % (Auto) (30.8-76.2) % Lymph % (Auto) (18.4-52.1) % [place] % (Auto) (4.4-15.7) % Eos % (Auto) (0.6-8.1) % Baso % (Auto) (0.2-1.5) % Neut # (Auto) (1.5-6.3) x10-3/uL Lymph # (Auto) (1.0-4.4) x10-3/uL [place] # (Auto) (0.3-1.0) x10-3/uL Eos # (Auto) (0.0-0.8) x10-3/uL Baso # (Auto) (0.0-0.1) x10-3/uL Sodium (135-145) mmol/L Potassium (3.5-5.3) mmol/L Chloride (100-110) mmol/L Carbon Dioxide (21-32) mmol/L BUN (7-18) mg/dL Creatinine (0.55-1.02) mg/dL Est Cr Clr Drug Dosing Estimated GFR (MDRD) (>60) BUN/Creatinine Ratio (9-20) Glucose (80-116) mg/dL Calcium (8.6-10.2) mg/dL Total Bilirubin (0.1-1.3) mg/dL AST (5-25) IU/L ALT (12-36) U/L Alkaline Phosphatase (56-112) IU/L Total Protein (6.0-8.0) g/dL Albumin (3.5-5.2) g/dL Globulin g/dL Albumin/Globulin Ratio TSH, Ultra Sensitive 5.79 H (0.36-3.74) IU/mL Ethyl Alcohol (<0.03) % Meds: Medications Discontinued Medications Generic Name Dose Route Start Last Admin Trade Name Freq PRN Reason Stop Dose Admin Acetaminophen 650 mg 03/10/21 11:50 03/10/21 13:02 Acetaminophen 325 Mg Tab PO 650 mg Q6H PRN Administration Pain Albuterol 0 gm 03/10/21 04:43 Albuterol 8 Gm Inhaler INH Q4H PRN Shortness of Breath Apixaban 5 mg 03/10/21 09:00 03/11/21 09:51 Apixaban 5 Mg Tab PO 5 mg BID JAAVD Administration Atorvastatin Calcium 40 mg 03/10/21 21:00 03/10/21 21:59 Atorvastatin 40 Mg Tab PO 40 mg BEDTIME JAVAD Administration Diltiazem HCl 240 mg 03/10/21 09:00 03/11/21 09:51 Diltiazem 240 Mg Cap.Er PO 240 mg DAILY JAVAD Administration Levetiracetam 1,500 mg/ Sodium 115 mls @ 400 mls/hr 03/10/21 03:40 03/10/21 03:49 Chloride IV 03/10/21 03:57 400 mls/hr NOW STA Administration Sodium Chloride 1,000 mls @ 125 mls/hr 03/10/21 04:30 03/11/21 01:16 Normal Saline IV 125 mls/hr ASDIRECTED JAVAD Administration Thiamine HCl 100 mg/ Sodium 101 mls @ 202 mls/hr 03/10/21 04:43 03/10/21 05:12 Chloride IV 03/10/21 04:44 202 mls/hr NOW STA Administration Levetiracetam 1,500 mg/ Sodium 115 mls @ 400 mls/hr 03/10/21 09:00 03/11/21 09:53 Chloride IV Not Given Q12H JAVAD Sodium Chloride 1,000 mls @ 999 mls/hr 03/10/21 05:00 Normal Saline IV ASDIRECTED JAVAD Ketorolac Tromethamine 30 mg 03/10/21 09:03 03/10/21 09:10 Ketorolac 30 Mg/Ml Sdv IVPUSH 03/15/21 09:04 30 mg Q8H PRN Administration Breakthrough Pain Lamotrigine 100 mg 03/10/21 09:00 03/11/21 09:51 Lamotrigine 100 Mg Tab PO 100 mg BID JAVAD Administration Levothyroxine Sodium 150 mcg 03/10/21 07:30 03/11/21 06:55 Levothyroxine 150 Mcg Tab PO 150 mcg ACBREAKFAST JAVAD Administration Lorazepam 1 mg 03/10/21 04:28 Lorazepam 2 Mg/Ml Sdv IVPUSH Q8H PRN Seizures Budesonide/Glycopyr/ 2 puff 03/10/21 09:00 03/11/21 09:52 Formoterol [Breztri] INH 2 puff *Ptom BID JAVAD Administration Ondansetron HCl 4 mg 03/10/21 05:00 03/10/21 05:12 Ondansetron 4 Mg/2 Ml Sdv IVPUSH 4 mg Q4H JAVAD Administration Ondansetron HCl 4 mg 03/10/21 08:51 03/10/21 13:11 Ondansetron 4 Mg/2 Ml Sdv IVPUSH 4 mg Q4H PRN Administration Nausea Paroxetine HCl 20 mg 03/10/21 09:00 03/11/21 09:51 Paroxetine 20 Mg Tab PO 20 mg DAILY JAVAD Administration Senna/Docusate Sodium 1 tab 03/10/21 04:25 Docusate Sodium/Sennosides 50-8.6 Mg Tab PO BID PRN Constipation Thiamine HCl 100 mg 03/11/21 09:00 03/11/21 09:54 Thiamine 200 Mg/2 Ml Mdv IVPUSH Not Given DAILY JAVAD Tiotropium [place] 0 gm 03/10/21 09:00 03/11/21 09:50 Tiotropium [place] 4 Gm Inhalation [place] (2.5mcg/1 Dose; 10 Doses) INH 2 puff DAILY JAVAD Administration Departure - Departure Time of Disposition: 05:00 Disposition: Refer to Observation Condition: Good Clinical Impression: Seizure, Alcoholism, Dyslipidemia, Anxiety Afib Qualifiers: Atrial fibrillation type: paroxysmal Qualified Code(s): I48.0 - Paroxysmal atrial fibrillation HTN (hypertension) Qualifiers: Hypertension type: primary hypertension Qualified Code(s): I10 - Essential (primary) hypertension Depression Qualifiers: Depression Type: major depressive disorder Psychotic features: without psychotic features - Discharge Information
[2021-03-10] MEDS ORDERED: Thiamine 100 MG in Sodium Chloride 0.9% 100 ML IV STA (04:43)
[2021-03-10] MEDS ORDERED: Albuterol 8 GM Inhaler INH PRN (04:43)
[2021-03-10] MEDS: Sodium Chloride 0.9% 1,000 ML IV SCH ×3 (04:46→16:34)
[2021-03-10] MEDS ORDERED: Ondansetron 4 MG/2 ML SDV IVPUSH SCH (05:00)
[2021-03-10] MEDS ORDERED: Sodium Chloride 0.9% 1,000 ML IV SCH (05:00)
[2021-03-10] MEDS: lamoTRIgine 100 MG Tab PO SCH ×2 (08:44→21:59)
[2021-03-10] MEDS: Diltiazem 240 MG Cap.ER PO SCH (08:44)
[2021-03-10] MEDS: Levothyroxine 150 MCG Tab PO SCH (08:44)
[2021-03-10] MEDS: PARoxetine 20 MG Tab PO SCH (08:45)
[2021-03-10] MEDS: Apixaban 5 MG Tab PO SCH ×2 (08:45→21:58)
[2021-03-10] MEDS: Tiotropium Bromide 4 GM Inhalation Spray (2.5mcg/1 dose; 10 doses) INH SCH (08:45)
[2021-03-10] MEDS ORDERED: Ketorolac 30 MG/ML SDV IVPUSH PRN (09:03)
[2021-03-10] MEDS: Ondansetron 4 MG/2 ML SDV IVPUSH PRN ×2 (09:10→13:11)
[2021-03-10] MEDS: levETIRAcetam 1,500 MG in Sodium Chloride 0.9% 100 ML IV SCH ×2 (09:11→22:22)
--- NOTE | 2021-03-10 09:11 | PCM.HP.2 ---
H&P History of Present Illness - General Date of Service: 03/10/21 Admit Problem/Dx: Admission Diagnosis/Problem Admission Diagnosis/Problem Seizure Source of Information: Patient, Family, Old Records History Limitations: Reports: Altered Mental Status - History of Present Illness Initial Comments - Free Text/Narative: Maureen is a 56-year-old female admitted last night because of 3 brief seizures, 2 at home and one witnessed in the emergency room. Lasted about a minute and described as generalized tonic-clonic. She has shown memory disturbances confusion since and was admitted for observation. She does have a history of seizure disorder and takes Lamictal 100 mg twice a day faithfully, according to the . She also has ETOH abuse disorder, last drink about 48 hours ago. This morning she complains of a headache. She denies chest pain or shortness of breath. She has multiple bruises noted on the legs and arms ,possibly from multiple falls at home. She also saw neurology in October.Her other secondary medical history includes nicotine dependence, atrial flutter, hypertension, COPD. Headache Pain Score (Numeric/FACES): 5 - Related Data Allergies/Adverse Reactions: Allergies Allergy/AdvReac Type Severity Reaction Status Date / Time seasonal Allergy Other Uncoded 01/25/19 18:20 Home Medications: Home Meds Albuterol Sulfate [Proair Hfa] 2 puff INH Q4H PRN 01/25/19 [History] PARoxetine HCL [Paroxetine HCl] 20 mg PO DAILY 01/25/19 [History] Tiotropium [place] [Spiriva Respimat] 2 puff INH DAILY 01/25/19 [History] Apixaban [Eliquis] 5 mg PO BID 03/10/21 [History] Budesonide/Glycopyr/Formoterol [Breztri Aerosphere Inhaler] 2 puff INH BID 03/10/21 [History] Levothyroxine 150 mcg PO DAILY 03/10/21 [History] atorvaSTATin [Lipitor] 40 mg PO BEDTIME 03/10/21 [History] dilTIAZem HCL [Dilt-Xr] 240 mg PO DAILY 03/10/21 [History] lamoTRIgine [Lamotrigine] 100 mg PO BID 03/10/21 [History] Past Medical History HEENT History: Reports: Impaired Vision Cardiovascular History: Reports: Afib, High Cholesterol, Hypertension Respiratory History: Reports: Asthma, COPD, Pneumonia, Recurrent Other Respiratory History: Former cigarette smoker. Gastrointestinal History: Reports: None Genitourinary History: Reports: None SURGICAL SERVICES DIRECTOR History: Reports: Other OB/BYN History: Neurological History: Reports: Seizure, Other (See Below) Other Neuro History: Episodes of headache and memory loss, around 2017 and 2019. Psychiatric History: Reports: Anxiety, Depression Endocrine/Metabolic History: Reports: Hypothyroidism, Obesity/BMI 30+, Other (See Below) Other Endocrine/Metabolic History: Takes thyroid medication. Hematologic History: Reports: None Immunologic History: Reports: None Oncologic (Cancer) History: Reports: None Dermatologic History: Reports: None - Infectious Disease History Infectious Disease History: Reports: None - Past Surgical History Female Surgical History: Reports: Section Social & Family History - Family History Family Medical History: No Pertinent Family History - Tobacco Use Tobacco Use Status *Q: Former Tobacco User Used Tobacco, but Quit: Yes Month/Year Tobacco Last Used: apr Second Hand Smoke Exposure: No - Caffeine Use Caffeine Use: Reports: Soda - Alcohol Use Days Per Week of Alcohol Use: 7 Number of Drinks Per Day: 4 Total Drinks Per Week: 28 - Recreational Drug Use Recreational Drug Use: No H&P Review of Systems - Review of Systems: Review Of Systems: Comprehensive ROS is negative, except as noted in HPI. Exam - Exam Exam: See Below - Vital Signs Vital Signs: Last Vital Signs Temp 98.1 F 03/10/21 08:12 Pulse 105 H 03/10/21 08:12 Resp 18 03/10/21 08:12 BP 144/63 H 03/10/21 08:12 Pulse Ox 94 L 03/10/21 08:12 Weight: 82.185 kg - Exam General: Alert, Oriented HEENT: PERRLA Neck: Supple Lungs: Clear to Auscultation Cardiovascular: Regular Rate GI/Abdominal Exam: Normal Bowel Sounds, Soft (Female) Exam: Deferred Rectal (Female) Exam: Deferred Back Exam: Normal Inspection Skin: Warm Neurological: Cranial Nerves Intact Neuro Extensive - Mental Status: Alert. No: Oriented x3 Psychiatric: Alert - Patient Data Lab Results Last 24 hrs: Laboratory Results - last 24 hr 03/10/21 03/10/21 03/10/21 Range/Units 03:55 03:55 03:55 WBC 10.4 H (3.0-10.3) x10-3/uL RBC 3.85 (3.60-5.20) x10(6)uL Hgb 12.5 (11.4-15.5) g/dL Hct 37.6 (34.2-48.2) % MCV 97.6 (76.7-100.5) fL MCH 32.5 (23.9-33.9) pg MCHC 33.3 (31.9-34.8) g/dL RDW 13.2 (12.3-16.5) % Plt Count 296 (151-488) x10(3)uL MPV 7.1 (7.1-12.4) fL Neut % (Auto) 84.9 H (30.8-76.2) % Lymph % (Auto) 10.3 L (18.4-52.1) % [place] % (Auto) 3.8 L (4.4-15.7) % Eos % (Auto) 0.1 L (0.6-8.1) % Baso % (Auto) 0.9 (0.2-1.5) % Neut # (Auto) 8.8 H (1.5-6.3) x10-3/uL Lymph # (Auto) 1.1 (1.0-4.4) x10-3/uL [place] # (Auto) 0.4 (0.3-1.0) x10-3/uL Eos # (Auto) 0.0 (0.0-0.8) x10-3/uL Baso # (Auto) 0.1 (0.0-0.1) x10-3/uL Sodium 130 L (135-145) mmol/L Potassium 3.5 (3.5-5.3) mmol/L Chloride 94 L D (100-110) mmol/L Carbon Dioxide 19 L (21-32) mmol/L BUN 12 (7-18) mg/dL Creatinine 1.3 H (0.55-1.02) mg/dL Est Cr Clr Drug Dosing TNP Estimated GFR (MDRD) 42 L (>60) BUN/Creatinine Ratio 9.2 (9-20) Glucose 177 H (80-116) mg/dL Calcium 8.2 L (8.6-10.2) mg/dL Total Bilirubin 1.2 (0.1-1.3) mg/dL AST 100 H D (5-25) IU/L ALT 68 H D (12-36) U/L Alkaline Phosphatase 119 H (56-112) IU/L Total Protein 6.6 (6.0-8.0) g/dL Albumin 3.2 L (3.5-5.2) g/dL Globulin 3.4 g/dL Albumin/Globulin Ratio 0.9 TSH, Ultra Sensitive (0.36-3.74) IU/mL Urine Opiates Screen (NEGATIVE) Ur Buprenorphine Scrn (NEGATIVE) Ur Oxycodone Screen (NEGATIVE) Urine Methadone Screen (NEGATIVE) Ur Propoxyphene Screen (NEGATIVE) Ur Barbiturates Screen (NEGATIVE) Ur Tricyclics Screen (NEGATIVE) Ur Phencyclidine Scrn (NEGATIVE) Ur Amphetamine Screen (NEGATIVE) U Methamphetamines Scrn (NEGATIVE) U Benzodiazepines Scrn (NEGATIVE) U Cocaine Metab Screen (NEGATIVE) U Marijuana (THC) Screen (NEGATIVE) Ethyl Alcohol < 0.03 (<0.03) % SARS-CoV-2 RNA (REJI) (NEGATIVE) 03/10/21 03/10/21 03/10/21 Range/Units 03:55 05:00 05:10 WBC (3.0-10.3) x10-3/uL RBC (3.60-5.20) x10(6)uL Hgb (11.4-15.5) g/dL Hct (34.2-48.2) % MCV (76.7-100.5) fL MCH (23.9-33.9) pg MCHC (31.9-34.8) g/dL RDW (12.3-16.5) % Plt Count (151-488) x10(3)uL MPV (7.1-12.4) fL Neut % (Auto) (30.8-76.2) % Lymph % (Auto) (18.4-52.1) % [place] % (Auto) (4.4-15.7) % Eos % (Auto) (0.6-8.1) % Baso % (Auto) (0.2-1.5) % Neut # (Auto) (1.5-6.3) x10-3/uL Lymph # (Auto) (1.0-4.4) x10-3/uL [place] # (Auto) (0.3-1.0) x10-3/uL Eos # (Auto) (0.0-0.8) x10-3/uL Baso # (Auto) (0.0-0.1) x10-3/uL Sodium (135-145) mmol/L Potassium (3.5-5.3) mmol/L Chloride (100-110) mmol/L Carbon Dioxide (21-32) mmol/L BUN (7-18) mg/dL Creatinine (0.55-1.02) mg/dL Est Cr Clr Drug Dosing Estimated GFR (MDRD) (>60) BUN/Creatinine Ratio (9-20) Glucose (80-116) mg/dL Calcium (8.6-10.2) mg/dL Total Bilirubin (0.1-1.3) mg/dL AST (5-25) IU/L ALT (12-36) U/L Alkaline Phosphatase (56-112) IU/L Total Protein (6.0-8.0) g/dL Albumin (3.5-5.2) g/dL Globulin g/dL Albumin/Globulin Ratio TSH, Ultra Sensitive 5.79 H (0.36-3.74) IU/mL Urine Opiates Screen Negative (NEGATIVE) Ur Buprenorphine Scrn Negative (NEGATIVE) Ur Oxycodone Screen Negative (NEGATIVE) Urine Methadone Screen Negative (NEGATIVE) Ur Propoxyphene Screen Negative (NEGATIVE) Ur Barbiturates Screen Negative (NEGATIVE) Ur Tricyclics Screen Negative (NEGATIVE) Ur Phencyclidine Scrn Negative (NEGATIVE) Ur Amphetamine Screen Negative (NEGATIVE) U Methamphetamines Scrn Negative (NEGATIVE) U Benzodiazepines Scrn Negative (NEGATIVE) U Cocaine Metab Screen Negative (NEGATIVE) U Marijuana (THC) Screen Negative (NEGATIVE) Ethyl Alcohol (<0.03) % SARS-CoV-2 RNA (REJI) Negative (NEGATIVE) Result Diagrams: 03/10/21 03:55 03/10/21 03:55 Sepsis Event Note - Evaluation Sepsis Screening Result: No Definite Risk - Focused Exam Vital Signs: Vital Signs Temp Temp Pulse Resp BP Pulse Ox Pulse Ox 03/10/21 08:12 98.1 F 105 H 18 144/63 H 94 L 94 L 03/10/21 05:30 99.1 F 99 16 142/71 H 92 L 92 L 03/10/21 04:15 98.7 F 101 H 18 143/70 H 90 L - Problem List (1) Seizure SNOMED Code(s): 15455324 ICD Code: R56.9 - UNSPECIFIED CONVULSIONS Status: Acute Current Visit: Yes (2) Alcoholism SNOMED Code(s): 3034839 ICD Code: F10.20 - ALCOHOL DEPENDENCE, UNCOMPLICATED Status: Acute Current Visit: Yes (3) Afib SNOMED Code(s): 86240492 ICD Code: I48.91 - UNSPECIFIED ATRIAL FIBRILLATION Status: Acute Current Visit: Yes Qualifiers: Atrial fibrillation type: paroxysmal Qualified Code(s): I48.0 - Paroxysmal atrial fibrillation (4) Depression SNOMED Code(s): 88437409 ICD Code: F32.A - DEPRESSION, UNSPECIFIED Status: Acute Current Visit: Yes Qualifiers: Depression Type: major depressive disorder Psychotic features: without psychotic features (5) HTN (hypertension) SNOMED Code(s): 17534470 ICD Code: I10 - ESSENTIAL (PRIMARY) HYPERTENSION Status: Acute Current Visit: Yes Qualifiers: Hypertension type: primary hypertension Qualified Code(s): I10 - Essential (primary) hypertension (6) Headache SNOMED Code(s): 25608896 ICD Code: R51 - HEADACHE * DO NOT USE * Status: Acute Current Visit: No Qualifiers: Headache type: unspecified Headache chronicity pattern: acute headache Intractability: not intractable (7) [place] (obstructive sleep apnea) SNOMED Code(s): 58556388 ICD Code: G47.33 - OBSTRUCTIVE SLEEP APNEA (ADULT) (PEDIATRIC) Status: Acute Current Visit: No Problem List Initiated/Reviewed/Updated: Yes Orders Last 24hrs: Active Orders 24 hr Category Date Time Status Patient Status [ADT] Routine ADT 03/10/21 04:16 Active Patient Status [ADT] Routine ADT 03/10/21 04:25 Active Oxygen Therapy [RC] PRN Care 03/10/21 04:25 Active Pulse Oximetry [RC] PRN Care 03/10/21 04:16 Active RT Aerosol Therapy [RC] ASDIRECTED Care 03/10/21 04:44 Active RT Post Treatment Assessment [RC] Click to Edit Care 03/10/21 04:44 Active Up With Assistance [RC] ASDIRECTED Care 03/10/21 04:25 Active Vital Signs [RC] 00,04,08,12,16,20 Care 03/10/21 04:16 Active Heart Healthy Diet [DIET] Diet 03/10/21 Breakfast Ordered Heart Healthy Diet [DIET] Diet 03/10/21 Breakfast Ordered Chest 1V Frontal [CR] Stat Exams 03/10/21 03:41 Taken AMMONIA, PLASMA Stat Lab 03/10/21 09:03 Ordered LEVETIRACETAM (KEPPRA), S Stat Lab 03/10/21 03:55 Received Albuterol [Ventolin HFA] Med 03/10/21 04:43 Active 0 gm INH Q4H PRN Apixaban [Eliquis] Med 03/10/21 09:00 Active 5 mg PO BID Budesonide/Glycopyr/Formoterol [Breztri Aerosphere Med 03/10/21 09:00 Active Inhaler] 2 puff INH BID Diltiazem [Dilacor XR] Med 03/10/21 09:00 Active 240 mg PO DAILY Docusate Sodium/Sennosides [Senna Plus] Med 03/10/21 04:25 Active 1 tab PO BID PRN Ketorolac [Toradol] Med 03/10/21 09:03 Ordered 30 mg IVPUSH Q8H PRN LORazepam [Ativan] Med 03/10/21 04:28 Active 1 mg IVPUSH Q8H PRN Levothyroxine Med 03/10/21 07:30 Active 150 mcg PO ACBREAKFAST Ondansetron [Zofran] Med 03/10/21 08:51 Active 4 mg IVPUSH Q4H PRN PARoxetine [Paxil] Med 03/10/21 09:00 Active 20 mg PO DAILY Sodium Chloride 0.9% [Normal Saline] 1,000 ml Med 03/10/21 04:30 Active IV ASDIRECTED Sodium Chloride 0.9% [Normal Saline] 1,000 ml Med 03/10/21 05:00 Active IV ASDIRECTED Tiotropium [place] [Spiriva Respimat] Med 03/10/21 09:00 Active 0 gm INH DAILY atorvaSTATin [Lipitor] Med 03/10/21 21:00 Active 40 mg PO BEDTIME lamoTRIgine Med 03/10/21 09:00 Active 100 mg PO BID levETIRAcetam [Keppra] 1,500 mg Med 03/10/21 09:00 Active Sodium Chloride 0.9% [Normal Saline] 100 ml IV Q12H Sequential Compression Device [OM.PC] Per Unit Routine Oth 03/10/21 04:27 Ordered Resuscitation Status Routine Resus Stat 03/10/21 04:14 Ordered Medication Orders Albuterol (Albuterol 8 Gm Inhaler) 0 gm INH Q4H PRN PRN Reason: Shortness of Breath Apixaban (Apixaban 5 Mg Tab) 5 mg PO BID [facility] Last Admin: 03/10/21 08:45 Dose: 5 mg Documented by: STEVEN Atorvastatin Calcium (Atorvastatin 40 Mg Tab) 40 mg PO BEDTIME JAVAD Diltiazem HCl (Diltiazem 240 Mg Cap.Er) 240 mg PO DAILY [facility] Last Admin: 03/10/21 08:44 Dose: 240 mg Documented by: STEVEN Sodium Chloride (Normal Saline) 1,000 mls @ 125 mls/hr IV ASDIRECTED [facility] Last Admin: 03/10/21 06:46 Dose: 125 mls/hr Documented by: Infusion: 03/10/21 05:59 Dose: 999 mls/hr Documented by: Infusion: 03/10/21 05:00 Dose: 999 mls/hr Documented by: Admin: 03/10/21 04:46 Dose: 125 mls/hr Documented by: FRANK Levetiracetam 1,500 mg/ Sodium (Chloride) 115 mls @ 400 mls/hr IV Q12H [facility] Sodium Chloride (Normal Saline) 1,000 mls @ 999 mls/hr IV ASDIRECTED [facility] Ketorolac Tromethamine (Ketorolac 30 Mg/Ml Sdv) 30 mg IVPUSH Q8H PRN PRN Reason: Breakthrough Pain Stop: 03/15/21 09:04 Lamotrigine (Lamotrigine 100 Mg Tab) 100 mg PO BID [facility] Last Admin: 03/10/21 08:44 Dose: 100 mg Documented by: STEVEN Levothyroxine Sodium (Levothyroxine 150 Mcg Tab) 150 mcg PO ACBREAKFAST [facility] Last Admin: 03/10/21 08:44 Dose: 150 mcg Documented by: STEVEN Lorazepam (Lorazepam 2 Mg/Ml Sdv) 1 mg IVPUSH Q8H PRN PRN Reason: Seizures Budesonide/Glycopyr/Formoterol [Breztri] *Ptom 2 puff INH BID [facility] Last Admin: 03/10/21 08:45 Dose: 2 puff Documented by: STEVEN Ondansetron HCl (Ondansetron 4 Mg/2 Ml Sdv) 4 mg IVPUSH Q4H PRN PRN Reason: Nausea Paroxetine HCl (Paroxetine 20 Mg Tab) 20 mg PO DAILY [facility] Last Admin: 03/10/21 08:45 Dose: 20 mg Documented by: STEVEN Senna/Docusate Sodium (Docusate Sodium/Sennosides 50-8.6 Mg Tab) 1 tab PO BID PRN PRN Reason: Constipation Tiotropium [place] (Tiotropium [place] 4 Gm Inhalation [place] (2.5mcg/1 Dose; 10 Doses)) 0 gm INH DAILY [facility] Last Admin: 03/10/21 08:45 Dose: 2 puff Documented by: SETVEN Assessment/Plan Comment:: I will obtain an ammonia level & CT of the head. Treat headache. Continue IV fluid replacement, add thiamine. Repeat labs in the morning. Place on CIWA scale and seizure precautions
[2021-03-10] MEDS ORDERED: Acetaminophen 325 MG Tab PO PRN (11:50)
[2021-03-10] MEDS ORDERED: atorvaSTATin 40 MG Tab PO SCH (21:00)
[2021-03-11] MEDS: Sodium Chloride 0.9% 1,000 ML IV SCH (01:16)
[2021-03-11] MEDS: Levothyroxine 150 MCG Tab PO SCH (06:55)
[2021-03-11] MEDS ORDERED: Thiamine 200 MG/2 ML MDV IVPUSH SCH (09:00)
[2021-03-11] MEDS: Tiotropium Bromide 4 GM Inhalation Spray (2.5mcg/1 dose; 10 doses) INH SCH (09:50)
[2021-03-11] MEDS: PARoxetine 20 MG Tab PO SCH (09:51)
[2021-03-11] MEDS: lamoTRIgine 100 MG Tab PO SCH (09:51)
[2021-03-11] MEDS: Diltiazem 240 MG Cap.ER PO SCH (09:51)
[2021-03-11] MEDS: Apixaban 5 MG Tab PO SCH (09:51)
[2021-03-11] MEDS: levETIRAcetam 1,500 MG in Sodium Chloride 0.9% 100 ML IV SCH (09:53)
--- NOTE | 2021-03-11 11:44 | DISCH ---
DISCHARGE DATE: 03/11/2021 REASON FOR ADMISSION: 1. Seizure disorder. 2. Alcohol abuse. 3. Depression, anxiety. 4. Atrial fibrillation. 5. Hypertension. BRIEF HISTORY: A 56-year-old female who has a previous history of a seizure disorder, was admitted with 3 seizures lasting about a minute. She was also found to be dehydrated with hyponatremia. CT of the head was negative. Alcohol was nil in blood. She was given IV fluids, thiamine replacement, and admitted under [facility] scale. She did very well and is ready to be discharged this morning. I discussed at length about seizures and taking her prescriptions. She already has an appointment with Neurology for followup. I discussed alcohol abuse, medications for treatment outpatient were discussed, since she is not interested in inpatient treatment. I wrote a prescription for ReVia 50 mg daily. Followup is recommended with PCP as well as Neurology. I spent more than 35 minutes in the discharge of the patient. /[id number] SUSANNAH/EVER
== END 2021-03-11 10:10 | disposition home or self-care (01) ==
LOC: FB.ED 03:23 → FB.MS 04:25
PROVIDERS: ADMIT Emergency Medicine; ATTEND Family Medicine
DX: G40.909 Epilepsy, unspecified, not intractable, without status epilepticus (principal); I10 Essential (primary) hypertension; J44.9 Chronic obstructive pulmonary disease, unspecified; I48.92 Unspecified atrial flutter; E78.00 Pure hypercholesterolemia, unspecified; E03.9 Hypothyroidism, unspecified; E66.9 Obesity, unspecified; F10.20 Alcohol dependence, uncomplicated; F32.A Depression, unspecified; G47.33 Obstructive sleep apnea (adult) (pediatric); F41.9 Anxiety disorder, unspecified; I48.91 Unspecified atrial fibrillation; Z20.822 Contact with and (suspected) exposure to COVID-19; Z79.899 Other long term (current) drug therapy; Z87.891 Personal history of nicotine dependence
CPT/HCPCS: 36415; 70450; 71045; 80053; 80177; 80307; 82140; 84443; 85025; 87635; A9270; J1885; J1953; J2405; J3411; J7030; U0002

== ENCOUNTER 2021-12-03 13:00 | Emergency (ER) | payer OTHER ==
[2021-12-03] MEDS ORDERED: Sodium Chloride 0.9% 10 ML Syringe FLUSH PRN (13:20)
[2021-12-03] MEDS ORDERED: levETIRAcetam 1,500 MG in Sodium Chloride 0.9% 100 ML IV STA (13:29)
[2021-12-03 13:59] LABS: ESTIMATED GFR 74 mL/min (>60)
[2021-12-03] MEDS ORDERED: levETIRAcetam 2,000 MG in Sodium Chloride 0.9% 100 ML IV STA (14:00)
[2021-12-03] MEDS ORDERED: levETIRAcetam 500 MG/5 ML SDV ONE (14:02)
== END 2021-12-03 16:15 | disposition home or self-care (01) ==
LOC: FB.ED 13:00
DX: S01.81XA Laceration without foreign body of other part of head, initial encounter (principal); R56.9 Unspecified convulsions; J45.909 Unspecified asthma, uncomplicated; I10 Essential (primary) hypertension; E66.9 Obesity, unspecified; Z68.25 Body mass index [BMI] 25.0-25.9, adult; Z79.899 Other long term (current) drug therapy; Z79.01 Long term (current) use of anticoagulants; W22.8XXA Striking against or struck by other objects, initial encounter
CPT/HCPCS: 12011; 36415; 70450; 70486; 80053; 80175; 85025; 96365; 99285; J1953; J3490

== ENCOUNTER 2022-08-13 14:03 | Emergency (ER) | payer OTHER ==
[2022-08-13] MEDS: LORazepam 2 MG/ML SDV IVPUSH ONE (14:17)
[2022-08-13 14:26] LABS: BASOPHILS ABSOLUTE AUTO 0.1 x10-3/uL (0.0-0.1); BASOPHILS PERCENT AUTO 1.2 % (0.2-1.5); EOSINOPHILS ABSOLUTE AUTO 0.1 x10-3/uL (0.0-0.8); EOSINOPHILS PERCENT AUTO 1.8 % (0.6-8.1); HEMATOCRIT 36.6 % (34.2-48.2); HEMOGLOBIN 12.2 g/dL (11.4-15.5); LYMPHOCYTES ABSOLUTE AUTO 1.6 x10-3/uL (1.0-4.4); LYMPHOCYTES PERCENT AUTO 32.4 % (18.4-52.1); MEAN CORPUSCULAR HEMOGLOBIN 31.6 pg (23.9-33.9); MEAN CORPUSCULAR HGB CONC 33.2 g/dL (31.9-34.8); MEAN CORPUSCULAR VOLUME 95.1 fL (76.7-100.5); MEAN PLATELET VOLUME 6.9 fL (7.1-12.4); MONOCYTES ABSOLUTE AUTO 0.4 x10-3/uL (0.3-1.0); MONOCYTES PERCENT AUTO 8.3 % (4.4-15.7); NEUTROPHILS ABSOLUTE AUTO 2.7 x10-3/uL (1.5-6.3); NEUTROPHILS PERCENT AUTO 56.3 % (30.8-76.2); PLATELET COUNT,PLT 142 x10(3)uL (151-488); RED BLOOD CELL COUNT 3.85 x10(6)uL (3.60-5.20); RED CELL DISTRIBUTION WIDTH 12.4 % (12.3-16.5); WHITE BLOOD CELL COUNT,WBC 4.8 x10-3/uL (3.0-10.3)
[2022-08-13 14:34] LABS: BLOOD UREA NITROGEN,BUN 11 mg/dL (7-18); BUN/CREATININE RATIO 12.2 (9-20); CALCIUM 9.2 mg/dL (8.6-10.2); CARBON DIOXIDE,CO2 25 mmol/L (21-32); CHLORIDE,CL 99 mmol/L (100-110); CREATININE 0.9 mg/dL (0.55-1.02); ESTIMATED GFR 74 mL/min (>60); GLUCOSE RANDOM 127 mg/dL (80-116); POTASSIUM,K 3.8 mmol/L (3.5-5.3); SODIUM,NA 135 mmol/L (135-145)
[2022-08-13 14:40] LABS: A/G RATIO 1.1; ALANINE AMINOTRANSFERASE,ALT 49 U/L (12-36); ALBUMIN 3.7 g/dL (3.5-5.2); ALKALINE PHOSPHATASE 94 IU/L (56-112); ASPARTATE AMNIOTRANSFERASE,AST 62 IU/L (5-25); BILIRUBIN TOTAL 1.2 mg/dL (0.1-1.3); PROTEIN TOTAL,TP 7.1 g/dL (6.0-8.0)
[2022-08-13 17:15] LABS: AMPHETAMINES SCREEN, URINE NEGATIVE (NEGATIVE); BARBITURATE SCREEN,URINE NEGATIVE (NEGATIVE); BENZODIAZEPINES SCREEN,URINE NEGATIVE (NEGATIVE); BUPRENORPHINE SCREEN,URINE NEGATIVE (NEGATIVE); METHADONE SCREEN, URINE NEGATIVE (NEGATIVE); METHAMPHETAMINE SCREEN, URINE NEGATIVE (NEGATIVE); OXYCODONE SCREEN,URINE NEGATIVE (NEGATIVE); PROPOXYPHENE SCREEN,URINE NEGATIVE (NEGATIVE); THC SCREEN,URINE NEGATIVE (NEGATIVE)
[2022-08-13] MEDS: levETIRAcetam 1,500 MG in Sodium Chloride 0.9% 100 ML IV ONE (17:47)
== END 2022-08-13 18:35 | disposition home or self-care (01) ==
LOC: FB.ED 14:03
DX: R56.9 Unspecified convulsions (principal); I48.0 Paroxysmal atrial fibrillation; I10 Essential (primary) hypertension; F10.20 Alcohol dependence, uncomplicated; R00.0 Tachycardia, unspecified; E78.00 Pure hypercholesterolemia, unspecified; J44.9 Chronic obstructive pulmonary disease, unspecified; E03.9 Hypothyroidism, unspecified; F17.210 Nicotine dependence, cigarettes, uncomplicated; E66.9 Obesity, unspecified; Z98.890 Other specified postprocedural states; Z91.048 Other nonmedicinal substance allergy status; Z79.01 Long term (current) use of anticoagulants; Z79.899 Other long term (current) drug therapy
CPT/HCPCS: 36415; 70450; 80053; 80307; 85025; 93005; 93010; 96374; 96375; 99283; 99285-25; J1953; J2060; J3490

== ENCOUNTER 2022-12-08 15:13 | Emergency (ER) | payer OTHER ==
[2022-12-08] MEDS ORDERED: Lidocaine 1% with EPINEPHrine 1:100,000 10 ML MDV INFILT ONE (15:14)
[2022-12-08] MEDS: Diphtheria,Pertussis(Acell),Tetanus Vaccine 0.5 ML Syringe IM ONE (17:44)
== END 2022-12-08 18:10 | disposition home or self-care (01) ==
LOC: FB.ED 15:13
DX: S01.81XA Laceration without foreign body of other part of head, initial encounter (principal); I48.91 Unspecified atrial fibrillation; I10 Essential (primary) hypertension; E78.00 Pure hypercholesterolemia, unspecified; J44.9 Chronic obstructive pulmonary disease, unspecified; E03.9 Hypothyroidism, unspecified; E66.9 Obesity, unspecified; Z68.28 Body mass index [BMI] 28.0-28.9, adult; Z23 Encounter for immunization; Z87.891 Personal history of nicotine dependence; Z79.01 Long term (current) use of anticoagulants; Z98.890 Other specified postprocedural states; Z79.899 Other long term (current) drug therapy; Z91.048 Other nonmedicinal substance allergy status; W18.30XA Fall on same level, unspecified, initial encounter; Y93.01 Activity, walking, marching and hiking; Y92.89 Other specified places as the place of occurrence of the external cause; Y99.0 Civilian activity done for income or pay
CPT/HCPCS: 12015; 70450; 90471; 90715; 99283-25

== ENCOUNTER 2023-12-28 05:26 | Emergency (ER) | payer SELFPAY ==
[2023-12-28] MEDS ORDERED: Etomidate 2 MG/ML 20 ML SDV IVPUSH ONE (05:27)
[2023-12-28] MEDS ORDERED: Rocuronium 100 MG/10 ML MDV IV ONE (05:27)
[2023-12-28] MEDS ORDERED: Succinylcholine 200 MG/10 ML MDV IV ONE (05:27)
[2023-12-28] MEDS ORDERED: Sodium Chloride 0.9% 10 ML Syringe FLUSH PRN (05:28)
[2023-12-28 05:38] LABS: HEMATOCRIT 39.9 % (34.2-48.2); HEMOGLOBIN 11.9 g/dL (11.4-15.5); MEAN CORPUSCULAR HEMOGLOBIN 27.8 pg (23.9-33.9); MEAN CORPUSCULAR HGB CONC 29.9 g/dL (31.9-34.8); MEAN CORPUSCULAR VOLUME 93.1 fL (76.7-100.5); MEAN PLATELET VOLUME 7.8 fL (7.1-12.4); PLATELET COUNT,PLT 233 x10(3)uL (151-488); RED BLOOD CELL COUNT 4.29 x10(6)uL (3.60-5.20); WHITE BLOOD CELL COUNT,WBC 11.8 x10-3/uL (3.0-10.3)
[2023-12-28] MEDS ORDERED: EPINEPHrine 1:10,000 1 MG/10 ML Syringe IV ONE ×5 (05:41→05:55)
[2023-12-28 05:52] LABS: BASE EXCESS VENOUS,POC -21 mmol/L (-2 - 3+); PCO2 VENOUS,POC 82 mmHg (41-51)
[2023-12-28 05:53] LABS: BLOOD UREA NITROGEN,BUN 11 mg/dL (7-18); CALCIUM 9.4 mg/dL (8.6-10.2); CARBON DIOXIDE,CO2 17 mmol/L (21-32); CHLORIDE,CL 97 mmol/L (100-110); CREATININE 1.1 mg/dL (0.55-1.02); ESTIMATED GFR 58 mL/min (>60); GLUCOSE RANDOM 157 mg/dL (80-116); SODIUM,NA 135 mmol/L (135-145)
[2023-12-28] MEDS ORDERED: Calcium Chloride 10% 1 GM/10 ML Syringe IV ONE (05:53)
[2023-12-28] MEDS ORDERED: Sodium Bicarbonate 8.4% 50 MEQ/50 ML Syringe IOSS ONE (05:54)
[2023-12-28 05:57] LABS: PH VENOUS,POC 6.83 pH Units (7.32-7.43)
[2023-12-28 05:59] LABS: A/G RATIO 0.9; ALKALINE PHOSPHATASE 148 IU/L (56-112); BILIRUBIN TOTAL 0.5 mg/dL (0.1-1.3); PROTEIN TOTAL,TP 6.5 g/dL (6.0-8.0)
[2023-12-28 06:00] LABS: INR 1.07 (1.00-1.24); PTT,PARTIAL THROMBOPLSTIN TIME 34.1 SECONDS (24.4-33.2)
[2023-12-28 06:19] LABS: BAND PERCENT MAN 3 % (0-6); EOSINOPHILS PERCENT MAN 1 % (0-5); LYMPHOCYTES % ATYPICAL MANUAL 3 % (0-0); LYMPHOCYTES PERCENT MAN 69 % (13-37); METAMYELOCYTE PERCENT MAN 1 % (0-0); MONOCYTES PERCENT MAN 2 % (4-12); SEG NEUTROPHILS PERCENT MAN 21 % (46-82)
[2023-12-28 07:45] LABS: ALANINE AMINOTRANSFERASE,ALT 1586 U/L (12-36)
[2023-12-28 07:46] LABS: ASPARTATE AMNIOTRANSFERASE,AST 2909 IU/L (5-25)
== END 2023-12-28 06:48 ==
LOC: FB.ED 05:26
DX: R09.2 Respiratory arrest (principal); R00.8 Other abnormalities of heart beat; I48.91 Unspecified atrial fibrillation; E78.00 Pure hypercholesterolemia, unspecified; I10 Essential (primary) hypertension; J44.9 Chronic obstructive pulmonary disease, unspecified; E03.9 Hypothyroidism, unspecified; E66.9 Obesity, unspecified; Z79.01 Long term (current) use of anticoagulants; Z79.899 Other long term (current) drug therapy; Z91.048 Other nonmedicinal substance allergy status
CPT/HCPCS: 31500; 36415; 71045; 80053; 82947; 84484; 85025; 85610; 85730; 92950; 99291; J0171; J0330; J3490